=== PATIENT | female | born 2000 | race American Indian/Alaskan Native ===

== ENCOUNTER 2021-03-30 06:37 | Emergency (ER) | payer SELFPAY ==
[2021-03-30] MEDS ORDERED: metroNIDAZOLE 500 MG TAB PO ONE (07:24)
[2021-03-30] MEDS ORDERED: LIDOCAINE-MPF (1%) 10 MG/1 ML VIAL 5 ML INFILTRATI ONE (07:24)
[2021-03-30] MEDS ORDERED: ONDANSETRON 4 MG ODT TAB PO ONE (07:25)
--- NOTE | 2021-03-30 07:28 | Emergency Department Report ---
ED Female HPI - General Chief complaint: Urogenital-Female Stated complaint: VAGINAL CHECKUP Time Seen by Provider: 03/30/21 07:16 Source: patient Mode of arrival: Ambulatory Limitations: No Limitations - History of Present Illness Initial comments: 20-year-old female presents to the ER today for treatment for possible STD. Patient states that her significant other informed her about an hour or 2 ago the he was having STD symptoms and came into the ER a few hours ago for treatment and recommend that she come in also for treatment. Patient reports no symptoms to me including no abdominal pain, pelvic pain or back pain. Her last menstrual cycle was about 2 weeks ago and normal. She has no chronic medical conditions. MD Complaint: possible STD -: This morning - Related Data Previous Rx's Medication Instructions Recorded Last Taken Type DOXYCYCLINE Hyclate [Vibramycin 100 mg PO Q12HR #14 capsule 03/30/21 Unknown Rx CAP] Allergies Allergy/AdvReac Type Severity Reaction Status Date / Time No Known Allergies Allergy Verified 03/30/21 07:31 ED Review of Systems ROS: Stated complaint: VAGINAL CHECKUP Other details as noted in HPI Comment: All other systems reviewed and negative Respiratory: denies: cough, shortness of breath, wheezing Cardiovascular: denies: chest pain, palpitations Gastrointestinal: denies: abdominal pain, nausea, vomiting, diarrhea, constipation, hematemesis, hematochezia Genitourinary: denies: urgency, dysuria, frequency, hematuria, discharge, abnormal menses, dyspareunia Musculoskeletal: denies: back pain, joint swelling, arthralgia Skin: denies: rash, lesions, change in color, change in hair/nails, pruritus Neurological: denies: headache, weakness, numbness, paresthesias, confusion ED Past Medical Hx - Past Medical History Previous Medical History?: No - Surgical History Past Surgical History?: No - Medications Home Medications: Home Medications Medication Instructions Recorded Confirmed Last Taken Type DOXYCYCLINE Hyclate [Vibramycin 100 mg PO Q12HR #14 capsule 03/30/21 Unknown Rx CAP] ED Physical Exam - General Limitations: No Limitations General appearance: alert, in no apparent distress - Neck Neck exam: Present: normal inspection, full ROM - Respiratory Respiratory exam: Present: normal lung sounds bilaterally. Absent: respiratory distress, wheezes, rales, rhonchi - Cardiovascular Cardiovascular Exam: Present: regular rate, normal rhythm, normal heart sounds - GI/Abdominal GI/Abdominal exam: Present: soft. Absent: distended, tenderness, guarding - Neurological Exam Neurological exam: Present: alert, oriented X3, CN II-XII intact, normal gait - Psychiatric Psychiatric exam: Present: normal affect, normal mood - Skin Skin exam: Present: intact ED Course Vital Signs 03/30/21 07:09 Temperature 98.7 F Pulse Rate 82 Respiratory 18 Rate Blood Pressure 109/68 O2 Sat by Pulse 100 Oximetry Critical care attestation.: If time is entered above; I have spent that time in minutes in the direct care of this critically ill patient, excluding procedure time. ED Disposition Clinical Impression: Possible exposure to STD Disposition: HOME / SELF CARE / HOMELESS Is pt being admited?: No Does the pt Need Aspirin: No Condition: Stable Instructions: Safe Sex Additional Instructions: You were treated here for possible gonorrhea and trichomonas. You were given a prescription for doxycycline to cover you for possible chlamydia. I do recommend that you follow-up with an [facility] for routine Pap smear as well as additional STD testing such as HIV and hepatitis and other STDs. Is very i mportant that you practice safe sex. Return to ER if anything changes or worsens. Prescriptions: DOXYCYCLINE Hyclate [Vibramycin CAP] 100 mg PO Q12HR #14 capsule Referrals: [facility] [Provider Group] - 3-5 Days [facility] [Provider Group] - 3-5 Days Forms: STI Treatment and Prevention Time of Disposition: 07:27
[2021-03-30 08:00] VITALS: BP 107/62
== END 2021-03-30 08:02 | disposition home or self-care (01) ==
LOC: ED 06:37
DX: Z20.2 Contact with and (suspected) exposure to infections with a predominantly sexual mode of transmission (principal); Z79.899 Other long term (current) drug therapy
CPT/HCPCS: 96372; 99282; J0696; J3490; Q0162